=== PATIENT | male | born 1995 | race African-American/Black ===

== ENCOUNTER 2018-03-26 22:41 | Inpatient (IN) | payer MEDICAID ==
[~2018-03-26] VITALS: Ht 182.9 cm; Wt 80.1 kg
--- NOTE | ~2018-03-26 | MORECARE ---
CASE MANAGEMENT DISCHARGE SUMMARY PATIENT: PAGE TOURE UNIT: [id number] ADM DATE: 03/27/18 AGE: 23 : [birth year] SEX: M ROOM/BED: D.5757 AUTHOR: STEFANY,DOC PHYSICIAN: REFERRING PHYSICIAN: GLENDY JONES MD DATE OF SERVICE: 03/30/18 Discharge Plan Patient Name: PAGE TOURE Facility: [facility]:[place] : 1995 Planned Disposition: Home Anticipated Discharge Date: 03/30/18 Discharge Date: Expected LOS: 3 Initial Reviewer: [email or web address] Initial Review Date: 03/27/2018 Generated: 03/30/18 1:20 pm Comments DCP- Discharge Planning Updated by [email or web address]: González Fine on 03/30/18 11:[address] Patient Name: PAGE TOURE Encounter No: [id number] : 1995 Primary Insurance: MEDICAID [place] Anticipated DC Date: 03-30-2018 Planned Disposition: Home DCP follow-up note: CM RECEIVED DISCHARGE ORDER, REVIEWED MEDICAL CHART; PHYSICIAN DOCUMENTATION SHOWS PT HAS BEEN EDUCATED AND CAN CHECK GLUCOSE LEVELS AND ADMINISTER INSULIN TO HIMSELF. OTHER CONCERNS OF SPECIALISTS FOLLOW UP WILL BE ADDRESSED BY DR. JONES IN CLINIC FOLLOW UP. NO DISCHARGE NEEDS IDENTIFIED. SYLVIA Griffin DCP- Discharge Planning Updated by [email or web address]: Carina Moncada on 03/27/18 6:[address] Late Entry 03-27-18 @ 1315 Patient Name: PAGE TOURE Admission Status: ER Accout number: [id number] Admission Date: 03-27-2018 : 1995 Admission Diagnosis: Attending: GLENDY JONES Current LOS: 1 Anticipated DC Date: Planned Disposition: Home Primary Insurance: UNINSURED DISCOUNT PLAN Discharge Planning Comments: CM met with patient and family at bedside. Patient is new diagnosis of DM type1. Patient is tearful at this time. Patient doesn't have any medical equipment, glucometer, test strips, needles, or insulin. Instructed patient and family on need for spout positioner. Patient may need Home Health services upon discharge for teaching and medication management. CM will check with pharmacy on what Medicaid covers as far as glucometer and testing supplies. CM will continue to follow assist as needed with discharge planning / needs. Federal District Clerk: Carina CUEVAA - Discharge Planning Initial Assessment Updated by [email or web address]: Carina Moncada on 03/27/18 7:00 pm * Is the patient Alert and Oriented? Yes * How many steps to enter\exit or inside your home? * PCP No PCP * Pharmacy [facility] * Preadmission Environment Home with Family * ADLs Independent * Equipment None * List name and contact numbers for known caregivers / representatives who currently or will assist patient after discharge: Rashmitarah Taylor - Mother - [phone] Page Toure Sr. Father- [phone] * Verbal permission to speak to the caregivers and representatives has been obtained from the patient. Yes * Community resources currently utilized None * Additional services required to return to the preadmission environment? No * Can the patient safely return to the preadmission environment? Yes * Has this patient been hospitalized within the prior 30 days at any hospital? No Last DP export: 03/27/18 6:11 Patient Name: PAGE TOURE Page [id number] at 1220 All edits/amendments must be made on the electronic document DICTATION DATE: 03/30/181219 STONE DRESSER: BETH 03/30/18 1220 RPT#: [id number] DC DATE: STATUS: ADM IN [facility] [address] [place] [address] END OF REPORT
--- NOTE | ~2018-03-26 | MORECARE ---
CASE MANAGEMENT DISCHARGE SUMMARY PATIENT: PAGE TOURE UNIT: [id number] ADM DATE: 03/27/18 AGE: 23 : [birth year] SEX: M ROOM/BED: D.2308 AUTHOR: ELA MCCALL PHYSICIAN: REFERRING PHYSICIAN: GLENDY JONES MD DATE OF SERVICE: 03/27/18 Discharge Plan Patient Name: PAGE TOURE [facility] [facility] 1995 Planned Disposition: Home Anticipated Discharge Date: Discharge Date: Expected LOS: Initial Reviewer: [email or web address] Initial Review Date: 03/27/2018 Generated: 03/27/18 8:04 pm DCPIA - Discharge Planning Initial Assessment Updated by [email or web address]: Carina Moncada on 03/27/18 7:00 pm * Is the patient Alert and Oriented? Yes * How many steps to enter\exit or inside your home? * PCP No PCP * [facility] * Preadmission Environment Home with Family * ADLs Independent * Equipment None * List name and contact numbers for known caregivers / representatives who currently or will assist patient after discharge: Rashmi Taylor - Mother - [phone] Page Toure Sr. Father- [phone] * Verbal permission to speak to the caregivers and representatives has been obtained from the patient. Yes * Community resources currently utilized None * Additional services required to return to the preadmission environment? No * Can the patient safely return to the preadmission environment? Yes * Has this patient been hospitalized within the prior 30 days at any hospital? No Last DP export: 03/27/18 5:58 Patient Name: PAGE TOURE Page [id number] at 1904 All edits/amendments must be made on the electronic document DICTATION DATE: 03/27/181903 QUALITY CONTROL ASSISTANT: BETH 03/27/181903 RPT#: [id number] DC DATE: STATUS: ADM IN [facility] [address] [place] [address] END OF REPORT
--- NOTE | ~2018-03-26 | MORECARE ---
CASE MANAGEMENT DISCHARGE SUMMARY PATIENT: PAGE TOURE UNIT: [id number] ADM DATE: 03/27/18 AGE: 23 : [birth year] SEX: M ROOM/BED: D.2308 AUTHOR: STEFANY,DOC PHYSICIAN: REFERRING PHYSICIAN: GLENDY JONES MD DATE OF SERVICE: 03/27/18 Discharge Plan Patient Name: PAGE TOURE Facility: [facility]:[place] : 1995 Planned Disposition: Home Anticipated Discharge Date: Discharge Date: Expected LOS: Initial Reviewer: [email or web address] Initial Review Date: 03/27/2018 Generated: 03/27/18 8:11 pm Comments DCP- Discharge Planning Updated by [email or web address]: Carina Moncada on 03/27/18 6:[address] Late Entry 03-27-18 @ 1315 Patient Name: PAGE TOURE Admission Status: ER Accout number: [id number] Admission Date: 03-27-2018 : 1995 Admission Diagnosis: Attending: GLENDY JONES Current LOS: 1 Anticipated DC Date: Planned Disposition: Home Primary Insurance: UNINSURED DISCOUNT PLAN Discharge Planning Comments: CM met with patient and family at bedside. Patient is new diagnosis of DM type1. Patient is tearful at this time. Patient doesn't have any medical equipment, glucometer, test strips, needles, or insulin. 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 Patient may need Home Health services upon discharge for teaching and medication management. CM will check with pharmacy on what Medicaid covers as far as glucometer and testing supplies. CM will continue to follow assist as needed with discharge planning / needs. Principal System Software Engineer: Carina Moncada DCPIA - Discharge Planning Initial Assessment Updated by [email or web address]: Carina Moncada on 03/27/18 7:00 pm * Is the patient Alert and Oriented? Yes * How many steps to enter\exit or inside your home? * PCP No PCP * [facility] * Preadmission Environment Home with Family * ADLs Independent * Equipment None * List name and contact numbers for known caregivers / representatives who currently or will assist patient after discharge: Rashmi Taylor - Mother - [phone] Page Toure . father- [phone] * Verbal permission to speak to the caregivers and representatives has been obtained from the patient. Yes * Community resources currently utilized None * Additional services required to return to the preadmission environment? No * Can the patient safely return to the preadmission environment? Yes * Has this patient been hospitalized within the prior 30 days at any hospital? No Last DP export: 03/27/18 6:04 Patient Name: PAGE TOURE Page [id number] at 191 All edits/amendments must be made on the electronic document DICTATION DATE: 03/27/181910 ACID ETCH OPERATOR: BETH 03/27/181910 RPT#: [id number] DC DATE: STATUS: ADM IN [facility] [address] [place] [address] END OF REPORT
--- NOTE | ~2018-03-26 | MORECARE ---
CASE MANAGEMENT DISCHARGE SUMMARY PATIENT: PAGE TOURE UNIT: [id number] ADM DATE: 03/27/18 AGE: 23 : [birth year] SEX: M ROOM/BED: D.2308 AUTHOR: ELA MCCALL PHYSICIAN: REFERRING PHYSICIAN: GLENDY JONES MD DATE OF SERVICE: 03/27/18 Discharge Plan Patient Name: PAGE TOURE Facility: [facility]:[place] : 1995 Planned Disposition: Home Anticipated Discharge Date: Discharge Date: Expected LOS: Initial Reviewer: [email or web address] Initial Review Date: 03/27/2018 Generated: 03/27/18 7:58 pm Patient Name: PAGE TOURE Page 27734 at 1858 All edits/amendments must be made on the electronic document DICTATION DATE: 03/27/181856 CAR BARN LABORER: BETH 03/27/181856 RPT#: [id number] DC DATE: STATUS: ADM IN [facility] [address] [place] [address] END OF REPORT
[2018-03-26 23:40] LABS: HEMATOCRIT 51.5 % (42.0-54.0); HEMOGLOBIN 18.6 g/dL (13.5-17.5); MCH 30.7 pg (26.0-34.0); MCHC 36.1 g/dL (31.0-37.0); MCV 85.1 fL (80.0-100.0); NEUTROPHILS 74.8 % (40-80); PLATELET COUNT 294 10x3/uL (130-400); RBC 6.05 10x6/uL (4.20-6.10); RDW 13.2 % (11.5-14.5); WBC 10.7 10x3/uL (4.8-10.8)
[2018-03-26 23:47] LABS: ALBUMIN 4.2 g/dL (3.4-5.0); BILIRUBIN - TOTAL 0.85 mg/dL (0.2-1.3); CALCIUM 9.8 mg/dL (8.5-10.1); CARBON DIOXIDE 15.8 mmol/L (21.0-32.0); CREATININE - SERUM 1.6 mg/dL (0.6-1.3); POTASSIUM - SERUM 3.8 mmol/L (3.5-5.1); PROTEIN - SERUM 10.2 g/dL (6.4-8.2)
[2018-03-27] VITALS (28 sets, daily range): BP systolic 111–142; BP diastolic 58–98; Ht 182.9 cm; Wt 80.1 kg
[2018-03-27 00:55] LABS: APPEARANCE CLEAR (CLEAR); BILIRUBIN NEGATIVE (NEGATIVE); COLOR YELLOW (YELLOW); GLUCOSE 1000 mg/dL (NEGATIVE); KETONE MODERATE mg/dL (NEGATIVE); NITRITE NEGATIVE (NEGATIVE); PROTEIN 2+ mg/dL (NEGATIVE); SPECIFIC GRAVITY 1.025 (1.005-1.020); UROBILINOGEN NORMAL (NORMAL)
[2018-03-27 00:57] LABS: BACTERIA FEW /hpf (NONE SEEN); EPITHELIAL CELLS 0-5 /hpf (0-5); RED CELLS - URINE 0-5 /hpf (0-5); WHITE CELLS - URINE 0-5 /hpf (0-5)
[2018-03-27 08:41] LABS: CALC OSMOLALITY 271 mosm/kg (275-300); CALCIUM 8.4 mg/dL (8.5-10.1); CARBON DIOXIDE 16.2 mmol/L (21.0-32.0); CHLORIDE - SERUM 102 mmol/L (98-107); CREATININE - SERUM 1.2 mg/dL (0.6-1.3); MAGNESIUM - SERUM 1.5 mg/dL (1.8-2.4); POTASSIUM - SERUM 3.4 mmol/L (3.5-5.1); SODIUM 136 mmol/L (136-145); UREA NITROGEN 8 mg/dL (7-18); eGFR NON AFRICAN AMERICAN 80 mL/min (90-120)
[2018-03-27 08:48] LABS: GLUCOSE 136 mg/dL (74-106)
[2018-03-27 12:47] LABS: T4 THYROXIN - FREE 1.03 ng/dL (0.76-1.46); THYROID STIMULATING HORMONE 1.61 uIU/mL (0.36-3.74)
[2018-03-27 12:58] LABS: CALC OSMOLALITY 270 mosm/kg (275-300); CALCIUM 8.5 mg/dL (8.5-10.1); CARBON DIOXIDE 18.4 mmol/L (21.0-32.0); CHLORIDE - SERUM 99 mmol/L (98-107); CREATININE - SERUM 1.2 mg/dL (0.6-1.3); GLUCOSE 168 mg/dL (74-106); MAGNESIUM - SERUM 1.4 mg/dL (1.8-2.4); POTASSIUM - SERUM 3.6 mmol/L (3.5-5.1); SODIUM 134 mmol/L (136-145); UREA NITROGEN 10 mg/dL (7-18); eGFR NON AFRICAN AMERICAN 80 mL/min (90-120)
[2018-03-27 16:42] LABS: CALC OSMOLALITY 267 mosm/kg (275-300); CALCIUM 8.2 mg/dL (8.5-10.1); CARBON DIOXIDE 19.9 mmol/L (21.0-32.0); CHLORIDE - SERUM 98 mmol/L (98-107); CREATININE - SERUM 1.2 mg/dL (0.6-1.3); GLUCOSE 164 mg/dL (74-106); MAGNESIUM - SERUM 2.2 mg/dL (1.8-2.4); POTASSIUM - SERUM 3.2 mmol/L (3.5-5.1); SODIUM 132 mmol/L (136-145); UREA NITROGEN 10 mg/dL (7-18); eGFR NON AFRICAN AMERICAN 80 mL/min (90-120)
[2018-03-28] VITALS (16 sets, daily range): BP systolic 108–131; BP diastolic 61–82
[2018-03-28 05:12] LABS: CALC OSMOLALITY 267 mosm/kg (275-300); CALCIUM 8.3 mg/dL (8.5-10.1); CHLORIDE - SERUM 99 mmol/L (98-107); CREATININE - SERUM 1.1 mg/dL (0.6-1.3); GLUCOSE 168 mg/dL (74-106); MAGNESIUM - SERUM 1.8 mg/dL (1.8-2.4); POTASSIUM - SERUM 3.2 mmol/L (3.5-5.1); SODIUM 133 mmol/L (136-145); eGFR NON AFRICAN AMERICAN 88 mL/min (90-120)
[2018-03-28 05:16] LABS: UREA NITROGEN 7 mg/dL (7-18)
[2018-03-29 00:42] VITALS: BP 135/76
[2018-03-29 05:17] VITALS: BP 128/84
[2018-03-29 06:19] LABS: CALC OSMOLALITY 277 mosm/kg (275-300); CALCIUM 8.4 mg/dL (8.5-10.1); CARBON DIOXIDE 28.5 mmol/L (21.0-32.0); CHLORIDE - SERUM 98 mmol/L (98-107); GLUCOSE 203 mg/dL (74-106); SODIUM 137 mmol/L (136-145); UREA NITROGEN 7 mg/dL (7-18); eGFR NON AFRICAN AMERICAN > 90 mL/min (90-120)
[2018-03-29 06:20] LABS: MAGNESIUM - SERUM 1.3 mg/dL (1.8-2.4); POTASSIUM - SERUM 2.9 mmol/L (3.5-5.1)
[2018-03-29 07:56] VITALS: BP 119/69
[2018-03-29 12:05] VITALS: BP 119/75
[2018-03-29 15:04] VITALS: BP 107/71
[2018-03-29 21:03] VITALS: BP 118/71
[2018-03-30 01:12] VITALS: BP 107/68
[2018-03-30 04:38] VITALS: BP 106/73
[2018-03-30 05:27] LABS: BASOPHILS 0.4 % (0-2); EOSINOPHILS 2.5 % (0-7); HEMATOCRIT 38.3 % (42.0-54.0); HEMOGLOBIN 13.9 g/dL (13.5-17.5); IMMATURE GRANULOCYTES 0.1 % (0-5); LYMPHOCYTES 42.1 % (15-50); MCH 30.8 pg (26.0-34.0); MCHC 36.3 g/dL (31.0-37.0); MCV 84.9 fL (80.0-100.0); MEAN PLATELET VOLUME 10.4 fL (7.4-10.4); MONOCYTES 11.1 % (2-11); NEUTROPHILS 43.8 % (40-80); PLATELET COUNT 202 10x3/uL (130-400); RBC 4.51 10x6/uL (4.20-6.10); RDW 12.5 % (11.5-14.5); WBC 7.2 10x3/uL (4.8-10.8)
[2018-03-30 05:31] LABS: CALCIUM 8.4 mg/dL (8.5-10.1); CARBON DIOXIDE 29.2 mmol/L (21.0-32.0); CHLORIDE - SERUM 99 mmol/L (98-107); CREATININE - SERUM 0.9 mg/dL (0.6-1.3); GLUCOSE 227 mg/dL (74-106); SODIUM 137 mmol/L (136-145); eGFR NON AFRICAN AMERICAN > 90 mL/min (90-120)
[2018-03-30 05:33] LABS: CALC OSMOLALITY 279 mosm/kg (275-300); MAGNESIUM - SERUM 1.8 mg/dL (1.8-2.4); POTASSIUM - SERUM 3.5 mmol/L (3.5-5.1); UREA NITROGEN 10 mg/dL (7-18)
[2018-03-30 08:03] VITALS: BP 120/77
[2018-03-30 11:19] VITALS: BP 116/59
[2018-03-30] MEDS ORDERED: HUMALOG 30100 UNITS/ SC (12:00)
[2018-03-30] MEDS ORDERED: LEVEMIR IN100 UNITS/ SC (12:00)
== END 2018-03-30 14:46 | disposition home or self-care (01) | DRG 639 ==
LOC: D.ER 22:41 → D.ICU 03-27 01:09 → D.M2 03-28 17:37
PROVIDERS: Family Medicine; Internal Medicine Nephrology
DX: E10.10 Type 1 diabetes mellitus with ketoacidosis without coma (principal); Z79.4 Long term (current) use of insulin; E86.0 Dehydration